=== PATIENT | male | born 1950 | race Two or more races ===

== ENCOUNTER 2018-09-24 13:27 | Outpatient (CLI) | payer MEDICARE ==
[2018-09-24 13:30] VITALS: BP 138/75
--- NOTE | 2018-09-24 22:30 | Consultation ---
DATE OF CONSULTATION: 09/24/2018 CHIEF COMPLAINT: Diarrhea and abdominal pain. HISTORY OF PRESENT ILLNESS: This is a very pleasant 68-year-old male without any significant past medical history. No prior history of endoscopy. No colonoscopy. He presented to us with a complaint of about 2 to 3 weeks of diarrhea. According to the patient, he had a right lower quadrant abdominal pain. The pain was radiating to the back and then 1 day, he felt that he passed something and the pain went away, but still having diarrhea for 3 weeks . No recent travel. No ingestion of the bad food according to him. No recent contact with someone, who have diarrhea. No blood in the stool. Some weight loss. Some fatigue. PAST MEDICAL HISTORY: None. PAST SURGICAL HISTORY: None. MEDICATIONS: None. ALLERGIES: No known drug allergies. FAMILY HISTORY: Mother had thyroid problem. SOCIAL HISTORY: The patient denies any tobacco, alcohol, or illicit drug abuse. 00:59. REVIEW OF SYSTEMS: A 10-point review of systems was performed and pertinent positives in the history of present illness. PHYSICAL EXAMINATION: VITAL SIGNS: Temperature 98.1, blood pressure is 132/75, pulse is 68, and respirations 20. HEENT: Normocephalic and atraumatic. Sclerae anicteric. NECK: Supple. No evidence of lymphadenopathy. CARDIOVASCULAR: Regular rhythm. Plus S1 and S2. No obvious murmur. LUNGS: Clear to auscultation bilaterally. ABDOMEN: Positive bowel sounds. Soft and nontender. No rebound. No guarding. No peritoneal sign. EXTREMITIES: No cyanosis. No clubbing. No edema. ASSESSMENT AND PLAN: A 68-year-old male with abdominal pain and diarrhea for 3 weeks. Needs screening colonoscopy. We will plan to do a colonoscopy on Saturday. On the day of procedure, we are also planning to do a set of laboratories including CBC, CMP, amylase, lipase, and a workup for diarrhea including celiac panel. If the colonoscopy does not show anything, we will consider doing stool studies. Jorden Mathew M.D. DR: EDGARDO JOB#: [id number] CC:
[2018-09-25] MEDS ORDERED: NO MEDICATION (07:16)
== END 2018-09-24 15:27 | disposition home or self-care (01) ==
LOC: PAN 13:27
DX: R19.7 Diarrhea, unspecified (principal); R10.9 Unspecified abdominal pain

== ENCOUNTER 2018-09-29 07:25 | Day surgery (SDC) | payer MEDICARE ==
[2018-09-29] VITALS (8 sets, daily range): BP systolic 109–139; BP diastolic 59–88
[~2018-09-29] VITALS: Ht 175.3 cm; Wt 73.5 kg
--- NOTE | 2018-09-29 07:23 | Anethesia Preoperative Eval ---
Anesthesia Pre-op PMH/ROS General Date of Evaluation: September 29, 2018 Time of Evaluation: 07:22 Anesthesiologist: jeanmarie ASA Score: ASA 2 Mallampati Score Class I : Soft palate, uvula, fauces, pillars visible Class II: Soft palate, uvula, fauces visible Class III: Soft palate, base of uvula visible Class IV: Only hard plate visible Mallampati Classification: Class II Surgeon: janet Diagnosis: colon screening Surgical Procedure: colonoscopy Anesthesia History: none Social History: smoking - nonsmoker Allergies: Coded Allergies: No Known Allergies (Unverified , 09/25/18) Medications: see eMAR Patient NPO?: Yes Past Medical History Gastrointestinal/Genitourinary: Reports: GERD HEENT: Reports: other - decreased visual acuity, right eye injury Hematology/Immune: Reports: other - thalassemia carrier, G6PD Musculoskeletal/Integumentary: Reports: DDD - lumbar, other - joint pain Anesthesia Pre-op Phys. Exam Physician Exam Last Vital Signs Date Time Temp Pulse Resp B/P (MAP) Pulse Ox O2 Delivery O2 Flow Rate FiO2 09/29/18 08:12 98.4 76 16 139/79 97 Room Air Constitutional: NAD Neurologic: CN 2-12 intact Cardiovascular: RRR Respiratory: CTA Gastrointestinal: S/NT/ND Airway Exam Mallampati Score: Class II MO: limited Neck: flexible TMD: 2fb ROM: limited Anesthesia Pre-op A/P Risk Assessment & Plan Assessment: asa3 Plan: mac Status Change Before Surgery: No Pre-Antibiotics Drug: Addie Johnston MD September 29, 2018 07:23
[~2018-09-29 07:25] MED LIST: NO MEDICATION
[2018-09-29] MEDS ORDERED: fentaNYL 100 mcg/2 mL IV PRN (07:30)
[2018-09-29] MEDS ORDERED: Atropine Sulfate 0.4mg/ml inj IVP PRN (07:30)
[2018-09-29] MEDS ORDERED: Midazolam 2mg/2ml Inj IVP PRN (07:30)
[2018-09-29] MEDS ORDERED: DiphenhydrAMINE 50mg/ml Inj IVP PRN (07:30)
[2018-09-29] MEDS ORDERED: Lidocaine 1% MPF 10mg/ml 5ml ONE (08:30)
[2018-09-29] MEDS ORDERED: Propofol 200mg/20ml IV ONE (08:30)
[2018-09-29] MEDS ORDERED: CALCIUM500 M2 PO (08:37)
[2018-09-29] MEDS ORDERED: VITAMIN D1000 UNI1 ORAL (08:37)
[2018-09-29] MEDS ORDERED: MAGNESIUM500 MG PO (08:37)
[2018-09-29 08:52] LABS: BASOPHILS % (AUTO) 1.1 % (0.0-2.0); EOSINOPHILS % (AUTO) 2.2 % (0.0-3.0); HEMATOCRIT 43.4 % (42.0-52.0); HEMOGLOBIN 14.3 G/DL (14.2-18.0); LYMPHOCYTES % (AUTO) 26.5 % (20.0-45.0); MEAN CORPUSCULAR VOLUME 90 FL (80-99); NEUTROPHILS % (AUTO) 61.3 % (45.0-75.0); PLATELET COUNT 314 K/UL (150-450); RED CELL DISTRIBUTION WIDTH 11.3 % (11.6-14.8)
--- NOTE | 2018-09-29 08:54 | Pre-Procedure Note/Attestation ---
Pre-Procedure Note/Attestation Complete Prior to Procedure Planned Procedure: not applicable Procedure Narrative: colonoscopy Indications for Procedure Pre-Operative Diagnosis: screening Attestation I attest that I discussed the nature of the procedure; its benefits; risks and complications; and alternatives (and the risks and benefits of such alternatives ), prior to the procedure, with the patient (or the patient's legal promotions representative). I attest that, if there was a reasonable possibility of needing a blood transfusion, the patient (or the patient's legal promotions representative) was given the [facility] standardized written summary, pursuant to the [place] Blood Safety Act ([place] Health and Safety Code # 1645, as amended). I attest that I re-evaluated the patient just prior to the surgery and that there has been no change in the patient's H&P, except as documented below: Jorden Mathew MD September 29, 2018 08:54
--- NOTE | 2018-09-29 08:54 | Short Stay Surgery H&P ---
History of Present Illness History of Present Illness Chief Complaint see recent office note HPI Max Mann is a 68 year old male who was admitted on for Screening Patient History Allergies: Coded Allergies: No Known Allergies (Unverified , 09/25/18) Medication History Scheduled Calcium Carbonate (Calcium), 500 MG PO DAILY, (Reported) Cholecalciferol (Vitamin D3)* (Vitamin D*), 2,000 UNITS ORAL DAILY, (Reported) Magnesium Oxide (Magnesium), 500 MG PO DAILY, (Reported) Physical Exam Vital Signs Last Vital Signs Date Time Temp Pulse Resp B/P (MAP) Pulse Ox O2 Delivery O2 Flow Rate FiO2 09/29/18 08:12 98.4 76 16 139/79 97 Room Air Labs Laboratory Tests Test 09/29/18 08:30 White Blood Count 4.0 K/UL (4.8-10.8) L Red Blood Count 4.80 M/UL (4.70-6.10) Hemoglobin 14.3 G/DL (14.2-18.0) Hematocrit 43.4 % (42.0-52.0) Mean Corpuscular Volume 90 FL (80-99) Mean Corpuscular Hemoglobin 29.7 PG (27.0-31.0) Mean Corpuscular Hemoglobin Concent 32.9 G/DL (32.0-36.0) Red Cell Distribution Width 11.3 % (11.6-14.8) L Platelet Count 314 K/UL (150-450) Mean Platelet Volume 6.7 FL (6.5-10.1) Neutrophils (%) (Auto) 61.3 % (45.0-75.0) Lymphocytes (%) (Auto) 26.5 % (20.0-45.0) Monocytes (%) (Auto) 9.0 % (1.0-10.0) Eosinophils (%) (Auto) 2.2 % (0.0-3.0) Basophils (%) (Auto) 1.1 % (0.0-2.0) Sodium Level Pending Potassium Level Pending Chloride Level Pending Carbon Dioxide Level Pending Blood Urea Nitrogen Pending Creatinine Pending Estimat Glomerular Filtration Rate Pending Glucose Level Pending Calcium Level Pending Total Bilirubin Pending Aspartate Amino Transf (AST/SGOT) Pending Alanine Aminotransferase (ALT/SGPT) Pending Alkaline Phosphatase Pending Total Protein Pending Albumin Pending Globulin Pending Amylase Level Pending Lipase Pending Immunoglobulin A Pending Endomysial IgA Antibody Pending Tissue Transglutaminase IgA Ab Pending Anti-Gliadin IgA Antibody Pending Plan Attestation Are the patient's medical conditions optimized for surgery? Jorden Mathew MD September 29, 2018 08:54
--- NOTE | 2018-09-29 09:18 | Endoscopy Procedure Note ---
Endoscopy Procedure Note General Indication for Procedure: screening Procedures Performed: colonoscopy Operative Findings/Diagnosis: diverticulosis Specimen: yes Pt Tolerated Procedure Well: Yes Estimated Blood Loss: none Anesthesia Anesthesiologist: jeanmarie Anesthesia: MAC Inserted Devices Implant(s) used?: No Quality Quality of Bowel Preparation: Excellent Did scope reach the cecum?: Yes Was there any complications?: No GI Core Measures 50 yrs or older w/o bx or poly: No 10yrs. F/U not recommended: Yes If not recommended, why?: Above average risk 10 yrs. F/U needed: Yes 18 years or older w/prev. colo: No Jorden Mathew MD September 29, 2018 09:18
[2018-09-29 09:32] LABS: ALANINE AMINOTRANSFERASE 22 U/L (12-78); ALBUMIN/GLOBULIN RATIO 0.9 (1.0-2.7); ALKALINE PHOSPHATASE 57 U/L (46-116); AMYLASE 108 U/L (25-115); ANION GAP 8 mmol/L (5-15); ASPARTATE AMINO TRANSFERASE 18 U/L (15-37); BILIRUBIN,TOTAL 0.7 MG/DL (0.2-1.0); BLOOD UREA NITROGEN 12 mg/dL (7-18); CALCIUM 9.6 MG/DL (8.5-10.1); CARBON DIOXIDE 27 MMOL/L (21-32); CHLORIDE 106 MMOL/L (98-107); POTASSIUM 3.8 MMOL/L (3.5-5.1); SODIUM 141 MMOL/L (136-145)
--- NOTE | 2018-09-29 09:39 | Immediate Post-Op Evaluation ---
Immediate Post-Op Evalulation Immediate Post-Op Evalulation Procedure: colonoscopy w/bx Date of Evaluation: September 29, 2018 Time of Evaluation: 09:37 IV Fluids: 325ml 0.9ns Blood Products: none Estimated Blood Loss: negligible Blood Pressure Systolic: 112 Blood Pressure Diastolic: 67 Pulse Rate: 66 Respiratory Rate: 19 O2 Sat by Pulse Oximetry: 100 Temperature (Fahrenheit): 98.2 Pain Score (1-10): 0 Nausea: No Vomiting: No Complications none Patient Status: awake, reacts, patent Hydration Status: adequate Drug: Addie Johnston MD September 29, 2018 09:39
--- NOTE | 2018-09-29 09:40 | 48 Hour Post Anesthesia Eval ---
Post Anesthesia Evaluation Procedure: colonoscopy w/bx Date of Evaluation: September 29, 2018 Time of Evaluation: 09:39 Blood Pressure Systolic: 114 0: 70 Pulse Rate: 68 Respiratory Rate: 18 Temperature (Fahrenheit): 98.2 O2 Sat by Pulse Oximetry: 100 Airway: patent Nausea: No Vomiting: No Pain Intensity: 0 Hydration Status: adequate Cardiopulmonary Status: stable Mental Status/LOC: patient returned to baseline Post-Anesthesia Complications: none Follow-up care needed: N/A Addie Heath MD September 29, 2018 09:40
--- NOTE | 2018-09-29 16:30 | Procedure Note ---
DATE OF PROCEDURE: 09/29/2018 SURGEON: Jorden Mathew M.D. PROCEDURE: Colonoscopy with biopsy. ANESTHESIA: Per Dr. Jimenez. INSTRUMENT: Olympus adult flexible colonoscope. INDICATION: Diarrhea and screening colonoscopy. REASON FOR PROCEDURE: The procedure, risks, benefits, and possible consequences, including hemorrhage, aspiration, perforation and infection, and alternative treatments, were explained to the patient/legal guardian by Dr. Jorden Mathew and the patient/legal guardian understood and accepted these risks. PROCEDURE IN DETAIL: After informed consent was obtained and the patient was adequately sedated, first rectal exam was performed, which showed positive for internal hemorrhoids. Then, the scope was advanced from the rectum into the cecum and then subsequently into the terminal ileum. Quality of prep was very good. The patient had some scattered diverticulosis in the left colon. Normal TI. No obvious polyp was seen in this colonoscopy examination. Random biopsy from the TI, right colon, and left colon was obtained for evaluation of diarrhea. The patient had evidence of hemorrhoids on retroflexion. SUMMARY OF FINDINGS: 1. Scattered diverticulosis in the left colon. 2. No obvious polyp was seen. 3. Status post random biopsy of the TI and left and right colon for evaluation of diarrhea. 4. Internal hemorrhoids. RECOMMENDATIONS: Follow up pathology and make recommendations based on the pathology results. Jorden Mathew M.D. DR: EDGARDO JOB#: [id number] CC:
--- NOTE | 2018-10-01 17:43 | Cardiology Report ---
APPROVED REPORT EKG Measurement Heart [id number] Normal sinus rhythm Normal ECG
== END 2018-09-29 10:00 | disposition home or self-care (01) ==
LOC: GAS 07:25
DX: Z12.11 Encounter for screening for malignant neoplasm of colon (principal); K52.832 Lymphocytic colitis; K57.90 Diverticulosis of intestine, part unspecified, without perforation or abscess without bleeding; K64.8 Other hemorrhoids; Z79.899 Other long term (current) drug therapy; K21.9 Gastro-esophageal reflux disease without esophagitis; M51.36 Other intervertebral disc degeneration, lumbar region
CPT/HCPCS: 36415; 45380; 80053; 82150; 82784; 83516; 83520; 83690; 85025; 86255; 93005; J2704; 94003; 94150

== ENCOUNTER 2018-10-06 13:58 | Outpatient (CLI) | payer MEDICARE ==
[~2018-10-06 13:58] MED LIST changes: +CALCIUM500 M2 PO; +MAGNESIUM500 MG PO; +VITAMIN D1000 UNI1 ORAL
[2018-10-06 14:09] VITALS: BP 125/61
--- NOTE | 2018-10-06 14:19 | General Progress Note ---
Assessment/Plan Problem List: (1) Lymphocytic colitis ICD Codes: K52.832 - Lymphocytic colitis SNOMED: [id number] Assessment/Plan: uceris imodium pending uceris avoid NSAID RTC 2 months Subjective ROS Limited/Unobtainable: Yes Allergies: Coded Allergies: No Known Allergies (Unverified , 09/25/18) Objective Last 24 Hour Vital Signs Date Time Temp Pulse Resp B/P (MAP) Pulse Ox O2 Delivery O2 Flow Rate FiO2 10/06/18 14:09 98.1 69 16 125/61 (82) 96 General Appearance: alert EENT: normal ENT inspection Neck: supple Cardiovascular: normal rate Respiratory/Chest: decreased breath sounds Abdomen: normal bowel sounds, non tender, soft Extremities: non-tender Jorden Mathew MD October 06, 2018 14:18
== END 2018-10-06 15:40 | disposition home or self-care (01) ==
LOC: PAN 13:58
DX: K52.832 Lymphocytic colitis (principal)
CPT/HCPCS: 99212